=== PATIENT | male | born 1960 | race Caucasian/White ===

== ENCOUNTER 2023-12-08 22:22 | Emergency (ER) | payer OTHER, MEDICARE ==
[~2023-12-08] VITALS: Ht 180.3 cm; Wt 75.3 kg
[2023-12-08] MEDS ORDERED: Diphth,Pertuss(Acell),Tet Vac 0.5 ML VIAL IM ONE (22:35)
[2023-12-08 22:38] LABS: Base Excess Venous 0.4 mmol/L; Bicarbonate Venous 24.8 mmol/L (24.0-30.0); pH Blood Venous 7.41 (7.34-7.37)
[2023-12-08 22:39] LABS: BASOPHILS ABSOLUTE AUTO 0.03 K/mm3 (0.00-0.23); BASOPHILS PERCENT AUTO 1 % (0-2); EOSINOPHILS ABSOLUTE AUTO 0.08 K/mm3 (0.00-0.68); EOSINOPHILS PERCENT AUTO 1 % (0-6); Hematocrit 35.5 % (37.0-53.0); Hemoglobin 12.5 g/dL (13.5-17.5); IMMATURE GRAN ABSOLUTE AUTO 0.01 K/mm3 (0.00-0.10); IMMATURE GRAN PERCENT AUTO 0 % (0-1); LYMPHOCYTES PERCENT AUTO 31 % (21-46); MONOCYTES ABSOLUTE AUTO 0.51 K/mm3 (0.16-1.47); MONOCYTES PERCENT AUTO 9 % (4-13); Mean Corpuscular HGB 34.6 pg (26.0-34.0); Mean Corpuscular HGB Conc 35.2 g/dL (31.5-36.5); Mean Corpuscular Volume 98 fL (80-100); Mean Platelet Volume 9.2 fL (9.1-12.4); NEUTROPHILS ABSOLUTE AUTO 3.41 K/mm3 (1.96-9.15); NEUTROPHILS PERCENT AUTO 58 % (41-73); Platelet Count 184 K/mm3 (150-400); RDW Coefficient Variation 13.2 % (11.7-14.2); RDW Standard Deviation 47.2 fL (35.1-46.3); Red Blood Cell Count 3.61 M/mm3 (4.30-5.90); White Blood Cell Count 5.84 K/mm3 (4.00-11.30)
[2023-12-08] MEDS ORDERED: FentaNYL Citrate 50 MCG/ML 2 ML Injection IV PRN (22:40)
[2023-12-08 23:00] LABS: Prothrombin Time Results 10.7 Sec (9.7-11.5)
[2023-12-08 23:03] LABS: Salicylate 2.1 mg/dL (2.8-20.0)
[2023-12-08 23:11] LABS: Acetaminophen, Random <2.0 ug/mL (10.0-30.0); Alanine Aminotransfer (ALT/SGP 29 U/L (12-78); Albumin, Blood 3.7 g/dL (3.4-5.0); Alk Phos 89 U/L (50-136); Anion Gap 13 mmol/L (3-11); Aspartate Aminotrans (AST/SGOT 49 U/L (12-37); Bilirubin, Total 0.3 mg/dL (0.1-1.0); Blood Urea Nitrogen 17 mg/dL (8-24); Bun/Creatinine Ratio 15.5 (12.0-20.0); CO2, Blood 26 mmol/L (21-32); Calcium, Blood 8.1 mg/dL (8.5-10.1); Chloride, Blood 110 mmol/L (98-108); Ethanol (Alcohol), Blood, Med 343 mg/dL; Globulin, Blood 3.8 g/dL (2.2-4.0); Glomerular Filtration Rate 76 (60-); Glucose, Blood 105 mg/dL (70-99); Potassium, Blood 3.7 mmol/L (3.5-5.5); Sodium, Blood 145 mmol/L (136-145); Total Protein, Blood 7.5 g/dL (6.4-8.2)
[2023-12-08] MEDS ORDERED: NAPR500 PO (23:21)
[2023-12-08] MEDS ORDERED: MEMA5TAB PO (23:21)
[2023-12-08 23:50] LABS: Source, Urine Clean Catch
[2023-12-08 23:56] LABS: Bilirubin, Urine Neg (Neg); Blood, Urine 1+ (Neg); Glucose Qualitative, Urine Neg (Neg); Ketones, Urine Neg (Neg); Leukocyte Esterase, Urine Neg (Neg); Nitrite, Urine Neg (Neg); Protein, Urine Neg (Neg); Urobilinogen, Urine NORM (Normal)
[2023-12-08 23:59] LABS: Appearance, Urine Clear (Clear); Color, Urine Pale Yellow (P-Yellow)
[2023-12-09 00:04] LABS: Bacteria Not Seen /hpf; Red Blood Cells, Urine 0-2 /hpf (0-2); Squamous Epithelial Cells Not Seen /hpf (Few); White Blood Cells, Urine Not Seen /hpf (0-5)
[2023-12-09 00:07] LABS: U Amphetamine Screen Not Detected; U Barbituate Screen Not Detected; U Benzodiazapine Screen Not Detected; U Buprenorphine Screen Not Detected; U Cannabinoids Screen DETECTED; U Cocaine Screen Not Detected; U Methadone Screen Not Detected; U Methamphetamine Screen Not Detected; U Opiates Screen Not Detected; U Oxycodone Screen Not Detected; U Phencyclidine Screen Not Detected
[2023-12-09] MEDS ORDERED: CEPH500 PO (00:47)
[2023-12-09] MEDS ORDERED: Cephalexin Monohydrate 500 MG Cap PO ONE (00:50)
[2023-12-09] MEDS ORDERED: Diphth,Pertuss(Acell),Tet Vac 0.5 ML VIAL IM ONE (00:55)
[2023-12-09] MEDS ORDERED: RX Prepack 6 Tabs Oxycodone 5mg UD ONE (02:15)
== END 2023-12-09 02:27 | disposition home or self-care (01) ==
LOC: ER 22:22
PROVIDERS: Emergency Medicine
DX: S06.0X1A Concussion with loss of consciousness of 30 minutes or less, initial encounter (principal); S42.001A Fracture of unspecified part of right clavicle, initial encounter for closed fracture; M97.32XA Periprosthetic fracture around internal prosthetic left shoulder joint, initial encounter; S01.511A Laceration without foreign body of lip, initial encounter; V29.99XA Rider (driver) (passenger) of other motorcycle injured in unspecified traffic accident, initial encounter
CPT/HCPCS: 12011; 29125; 70450; 70486; 71260; 72125; 73130; 74177; 80053; 80320; 81001; 82803; 83605; 84443; 85025; 85610; 85730; 90471; 90715; 93005; 93010; 99285-25; A9270; G0480; Q9967

== ENCOUNTER 2023-12-28 14:24 | Emergency (ER) | payer OTHER, MEDICARE ==
[~2023-12-28] VITALS: Ht 180.3 cm; Wt 83.9 kg
[~2023-12-28 14:24] MED LIST: CEPH500 PO; MEMA5TAB PO; NAPR500 PO
[2023-12-28] MEDS ORDERED: Ketorolac Tromethamine 30mg Vial IM ONE (14:55)
== END 2023-12-28 17:08 | disposition home or self-care (01) ==
LOC: ER 14:24
DX: S02.2XXA Fracture of nasal bones, initial encounter for closed fracture (principal); S00.31XA Abrasion of nose, initial encounter; V29.99XA Rider (driver) (passenger) of other motorcycle injured in unspecified traffic accident, initial encounter
CPT/HCPCS: 70450; 70486; 72125; 96372; 99284-25; J1885

== ENCOUNTER 2024-04-26 19:13 | Emergency (ER) | payer OTHER, MEDICARE ==
[~2024-04-26] VITALS: Ht 180.3 cm; Wt 102.1 kg
[2024-04-26 22:09] LABS: BASOPHILS ABSOLUTE AUTO 0.04 K/mm3 (0.00-0.23); BASOPHILS PERCENT AUTO 1 % (0-2); EOSINOPHILS ABSOLUTE AUTO 0.13 K/mm3 (0.00-0.68); EOSINOPHILS PERCENT AUTO 4 % (0-6); Hematocrit 36.4 % (37.0-53.0); Hemoglobin 12.9 g/dL (13.5-17.5); IMMATURE GRAN PERCENT AUTO 0 % (0-1); LYMPHOCYTES PERCENT AUTO 32 % (21-46); MONOCYTES ABSOLUTE AUTO 0.37 K/mm3 (0.16-1.47); MONOCYTES PERCENT AUTO 10 % (4-13); Mean Corpuscular HGB 33.9 pg (26.0-34.0); Mean Corpuscular HGB Conc 35.4 g/dL (31.5-36.5); Mean Corpuscular Volume 96 fL (80-100); Mean Platelet Volume 8.7 fL (9.1-12.4); NEUTROPHILS PERCENT AUTO 53 % (41-73); Platelet Count 209 K/mm3 (150-400); RDW Standard Deviation 49.4 fL (35.1-46.3); White Blood Cell Count 3.74 K/mm3 (4.00-11.30)
[2024-04-26] MEDS ORDERED: Lidocaine 4% 1 Patch TOP ONE (22:10)
[2024-04-26 22:30] LABS: International Normalized Ratio 0.93
[2024-04-26 23:13] LABS: Albumin, Blood 4.4 g/dL (3.4-5.0); Albumin/Globulin Ratio 1.1 (0.8-1.8); Bilirubin, Total 0.7 mg/dL (0.1-1.0); Calcium, Blood 8.4 mg/dL (8.5-10.1); Creatinine, Blood 1.38 mg/dL (0.60-1.20); Potassium, Blood 3.9 mmol/L (3.5-5.5); Total Protein, Blood 8.4 g/dL (6.4-8.2)
== END 2024-04-26 19:32 | disposition home or self-care (01) ==
LOC: ER 19:13
PROVIDERS: Emergency Medicine
DX: S06.5X0A Traumatic subdural hemorrhage without loss of consciousness, initial encounter (principal); S62.337A Displaced fracture of neck of fifth metacarpal bone, left hand, initial encounter for closed fracture; S62.341A Nondisplaced fracture of base of second metacarpal bone, left hand, initial encounter for closed fracture; S62.343A Nondisplaced fracture of base of third metacarpal bone, left hand, initial encounter for closed fracture; S62.345A Nondisplaced fracture of base of fourth metacarpal bone, left hand, initial encounter for closed fracture; F10.20 Alcohol dependence, uncomplicated; Z88.8 Allergy status to other drugs, medicaments and biological substances; Z91.040 Latex allergy status; Z88.5 Allergy status to narcotic agent; Z79.2 Long term (current) use of antibiotics; Z79.1 Long term (current) use of non-steroidal anti-inflammatories (NSAID); V22.49XA Other motorcycle driver injured in collision with two- or three-wheeled motor vehicle in traffic accident, initial encounter; Y93.55 Activity, bike riding
CPT/HCPCS: 29105; 70450; 70486; 71046; 73130; 80053; 85025; 85610; 85730; 99285-25

== ENCOUNTER 2024-12-16 11:14 | Emergency (ER) | payer OTHER ==
[~2024-12-16] VITALS: Ht 180.3 cm; Wt 89.9 kg
[2024-12-16 11:40] LABS: BASOPHILS ABSOLUTE AUTO 0.03 K/mm3 (0.00-0.23); BASOPHILS PERCENT AUTO 0 % (0-2); EOSINOPHILS ABSOLUTE AUTO 0.10 K/mm3 (0.00-0.68); EOSINOPHILS PERCENT AUTO 1 % (0-6); Hematocrit 36.7 % (37.0-53.0); Hemoglobin 12.3 g/dL (13.5-17.5); IMMATURE GRAN ABSOLUTE AUTO 0.04 K/mm3 (0.00-0.10); IMMATURE GRAN PERCENT AUTO 0 % (0-1); LYMPHOCYTES ABSOLUTE AUTO 0.93 K/mm3 (0.84-5.20); LYMPHOCYTES PERCENT AUTO 10 % (21-46); MONOCYTES ABSOLUTE AUTO 0.59 K/mm3 (0.16-1.47); MONOCYTES PERCENT AUTO 6 % (4-13); Mean Corpuscular HGB Conc 33.5 g/dL (31.5-36.5); Mean Corpuscular Volume 104 fL (80-100); NEUTROPHILS ABSOLUTE AUTO 7.63 K/mm3 (1.96-9.15); NEUTROPHILS PERCENT AUTO 82 % (41-73); NRBC ABSOLUTE 0.00 K/mm3 (0.00-0.02); NRBC Auto 0.0 /100 WBC (0.0-0.2); Platelet Count 195 K/mm3 (150-400); RDW Coefficient Variation 12.9 % (11.7-14.2); RDW Standard Deviation 49.6 fL (35.1-46.3)
[2024-12-16 12:00] LABS: Alanine Aminotransfer (ALT/SGP 22.0 U/L (12-78); Albumin, Blood 2.2 g/dL (3.4-5.0); Albumin/Globulin Ratio 0.4 (0.8-1.8); Anion Gap 10.0 mmol/L (3-11); Aspartate Aminotrans (AST/SGOT 116.0 U/L (12-37); Bilirubin, Total 1.9 mg/dL (0.1-1.0); Blood Urea Nitrogen 8.0 mg/dL (8-24); CO2, Blood 25.0 mmol/L (21-32); Calcium, Blood 7.9 mg/dL (8.5-10.1); Chloride, Blood 103.0 mmol/L (98-108); Creatinine, Blood 1.07 mg/dL (0.60-1.20); Globulin, Blood 5.2 g/dL (2.2-4.0); Glucose, Blood 188.0 mg/dL (70-99); Potassium, Blood 3.2 mmol/L (3.5-5.5); Sodium, Blood 135.0 mmol/L (136-145); Total Protein, Blood 7.4 g/dL (6.4-8.2)
[2024-12-16 12:38] LABS: Prothrombin Time Results 14.7 Sec (9.7-11.5)
[2024-12-16] MEDS ORDERED: NS 500 ML IV SCH (13:00)
[2024-12-16] MEDS ORDERED: FURO20 PO (13:08)
[2024-12-16] MEDS ORDERED: ONDA4 PO (13:08)
== END 2024-12-16 13:27 | disposition home or self-care (01) ==
LOC: ER 11:14
PROVIDERS: Emergency Medicine
DX: K70.31 Alcoholic cirrhosis of liver with ascites (principal); K76.6 Portal hypertension; J90 Pleural effusion, not elsewhere classified
CPT/HCPCS: 74177; 80053; 80320; 83690; 85025; 85610; 85730; 99284-25; J7030; Q9967

== ENCOUNTER 2025-01-28 10:52 | Inpatient (IN) | payer OTHER ==
[~2025-01-28] VITALS: Ht 180.3 cm; Wt 88.7 kg
[~2025-01-28 10:52] MED LIST changes: +FURO20 PO; +ONDA4 PO
[2025-01-28 12:17] LABS: BASOPHILS ABSOLUTE AUTO 0.06 K/mm3 (0.00-0.23); BASOPHILS PERCENT AUTO 1 % (0-2); EOSINOPHILS ABSOLUTE AUTO 0.17 K/mm3 (0.00-0.68); EOSINOPHILS PERCENT AUTO 2 % (0-6); Hematocrit 33.0 % (37.0-53.0); Hemoglobin 11.1 g/dL (13.5-17.5); IMMATURE GRAN ABSOLUTE AUTO 0.02 K/mm3 (0.00-0.10); IMMATURE GRAN PERCENT AUTO 0 % (0-1); LYMPHOCYTES ABSOLUTE AUTO 0.86 K/mm3 (0.84-5.20); LYMPHOCYTES PERCENT AUTO 11 % (21-46); MONOCYTES ABSOLUTE AUTO 0.58 K/mm3 (0.16-1.47); MONOCYTES PERCENT AUTO 7 % (4-13); Mean Corpuscular HGB Conc 33.6 g/dL (31.5-36.5); Mean Corpuscular Volume 108 fL (80-100); NEUTROPHILS ABSOLUTE AUTO 6.49 K/mm3 (1.96-9.15); NEUTROPHILS PERCENT AUTO 79 % (41-73); NRBC ABSOLUTE 0.00 K/mm3 (0.00-0.02); NRBC Auto 0.0 /100 WBC (0.0-0.2); Platelet Count 183 K/mm3 (150-400); RDW Coefficient Variation 15.4 % (11.7-14.2); RDW Standard Deviation 61.2 fL (35.1-46.3)
[2025-01-28 12:30] LABS: Prothrombin Time Results 14.5 Sec (9.7-11.5)
[2025-01-28 12:35] LABS: Alanine Aminotransfer (ALT/SGP 26.0 U/L (12-78); Albumin, Blood 2.3 g/dL (3.4-5.0); Albumin/Globulin Ratio 0.4 (0.8-1.8); Anion Gap 7.0 mmol/L (3-11); Aspartate Aminotrans (AST/SGOT 65.0 U/L (12-37); Bilirubin, Total 1.8 mg/dL (0.1-1.0); Blood Urea Nitrogen 10.0 mg/dL (8-24); CO2, Blood 21.0 mmol/L (21-32); Calcium, Blood 8.4 mg/dL (8.5-10.1); Chloride, Blood 110.0 mmol/L (98-108); Creatinine, Blood 1.24 mg/dL (0.60-1.20); Globulin, Blood 5.7 g/dL (2.2-4.0); Glucose, Blood 136.0 mg/dL (70-99); Potassium, Blood 3.2 mmol/L (3.5-5.5); Sodium, Blood 135.0 mmol/L (136-145); Total Protein, Blood 8.0 g/dL (6.4-8.2)
[2025-01-28] MEDS ORDERED: Piperacillin/Tazobactam Sod 4.5 GM in NS 100 ML IV ONE (12:55)
[2025-01-28] MEDS ORDERED: FentaNYL Citrate 50 MCG/ML 2 ML Injection IV ONE (12:55)
[2025-01-28] MEDS ORDERED: NS 1,000 ML IV SCH (12:55)
[2025-01-28] MEDS ORDERED: ENULOSE10 GM/156 PO (13:26)
[2025-01-28] MEDS ORDERED: B-1100 M1 PO (13:27)
[2025-01-28] MEDS ORDERED: RIFA550T2 PO (13:27)
[2025-01-28] MEDS ORDERED: SPIR50 PO (13:30)
[2025-01-28] MEDS ORDERED: FURO40 PO (13:30)
[2025-01-28] MEDS ORDERED: ONDA4ODT MM (13:31)
[2025-01-28] MEDS ORDERED: OMEP20ER PO (13:31)
[2025-01-28] MEDS ORDERED: FLU VACC TS2025-26(6MOS UP)/PF 45 MCG/0.5 ML SYRINGE IM SCH (17:20)
[2025-01-28] MEDS ORDERED: LACT10SY PO (18:25)
[2025-01-28] MEDS ORDERED: Piperacillin/Tazobactam Sod 3.375 GM in NS 100 ML IV SCH (18:30)
[2025-01-28 18:33] VITALS: BP 116/75
--- NOTE | 2025-01-28 19:22 | NUR ---
SHIFT SUMMARY PT ARRIVED TO ROOM 227 FROM ER AT APPROXIMATELY 1810, PT ALERT/ORIENTED. PT IS AMBULATORY. VSS. PT ORIENTED TO ROOM, CALL LIGHT WITHIN REACH. FAMILY PRESENT AT BEDSIDE.
[2025-01-28] MEDS ORDERED: NS 250 ML IV PRN (19:25)
--- NOTE | 2025-01-28 20:04 | NUR ---
PHYSICIAN COMMUNICATION DAY RN SARITA Alejandro INFORMED THIS NURSE PT K-3.2 & WAS ORDERED 80MEQ PO K. VERIFIED W/ADRIANNA Robertson IF WE WANTED TO GIVE FULL DOSE OF 80MEQ FOR A 3.2-K LEVEL & HE AGREED SINCE PT RECIEVING LASIX & SPIRONALACTONE.
[2025-01-28 22:00] VITALS: BP 153/76
[2025-01-28 22:56] LABS: pH Blood Venous 7.44 (7.34-7.37)
[2025-01-28 23:38] VITALS: BP 127/71
--- NOTE | 2025-01-28 23:56 | NUR ---
UPDATE/PHYSICIAN COMMUNICATION APPROX 2129 RENEWALS MANAGER MAITEKATHERINEAmanda Duggan WENT IN PT RM, HE WAS VISABLLY SHIVERING STATING HE WAS "COLD" & TEMP WAS 100.1, SHE REMOVED BLANKETS OFF PT. WHEN I WENT TO TAKE PO TEMP & VS, PT SHIVERING & STATING VERY COLD. PO TEMP 98.0, RR 24, HR 124, BP 153/76. INFORMED ADRIANNA Robertson & HE ORDERED LA, VBG, BLOOD CX & TYLENOL Q8. APPROX 2330 I WAS INFORMED PT HAD A CRITICAL LA OF 2.1. CALLED & INFORMED ADRIANNA Robertson OF LA & VBG RESULTS. ADRIANNA Robertson STATED PT IN RESPIRATORY ALKALOSIS & NO NEW ORDERS GIVEN AT THIS TIME. ADRIANNA Robertson STATED TO CONTINUE TO MONITOR TEMP & HR.
[2025-01-29 03:38] VITALS: BP 118/78
--- NOTE | 2025-01-29 06:07 | NUR ---
SHIFT SUMMARY AOX3-SELF, PLACE, SITUATION. FORGETFUL. ABLE TO MAKE NEEDS KNOWN & ANSWER/FOLLOW SIMPLE DIRECTIONS. PT HAD LOW GRADE TEMP T/O NIGHT, MEDICATED 1x W/500MG TYLENOL, SINCE RECIEVING TYLENOL PT HASNT BEEN NOTED TO HAVE AGRESSIVE CHILLS/SHAKING. HR TACHY @TIMES 103-124, WORSE WHEN TEMP ELEVATED. REST OF VSS. READ PREVIOUS NOTES REGARDING LA LAB. PT HAS VOIDED MULTx THIS SHIFT. HAD 2 LIQUID BM. ABD MOD-SEVERE DISTENDED, FIRM, DENIES N/V. TOLERATING CLEAR DIET. HYPERACTIVE BT. CALL LIGHT IN REACH.
[2025-01-29 06:20] LABS: BASOPHILS ABSOLUTE AUTO 0.06 K/mm3 (0.00-0.23); BASOPHILS PERCENT AUTO 1 % (0-2); EOSINOPHILS ABSOLUTE AUTO 0.19 K/mm3 (0.00-0.68); EOSINOPHILS PERCENT AUTO 3 % (0-6); Hematocrit 26.4 % (37.0-53.0); Hemoglobin 8.8 g/dL (13.5-17.5); IMMATURE GRAN ABSOLUTE AUTO 0.02 K/mm3 (0.00-0.10); IMMATURE GRAN PERCENT AUTO 0 % (0-1); LYMPHOCYTES ABSOLUTE AUTO 0.86 K/mm3 (0.84-5.20); LYMPHOCYTES PERCENT AUTO 14 % (21-46); MONOCYTES ABSOLUTE AUTO 0.34 K/mm3 (0.16-1.47); MONOCYTES PERCENT AUTO 6 % (4-13); Mean Corpuscular HGB Conc 33.3 g/dL (31.5-36.5); Mean Corpuscular Volume 107 fL (80-100); NEUTROPHILS ABSOLUTE AUTO 4.70 K/mm3 (1.96-9.15); NEUTROPHILS PERCENT AUTO 76 % (41-73); NRBC ABSOLUTE 0.00 K/mm3 (0.00-0.02); NRBC Auto 0.0 /100 WBC (0.0-0.2); Platelet Count 142 K/mm3 (150-400); RDW Coefficient Variation 15.4 % (11.7-14.2); RDW Standard Deviation 60.4 fL (35.1-46.3)
[2025-01-29 07:02] LABS: Alanine Aminotransfer (ALT/SGP 18.0 U/L (12-78); Albumin, Blood 1.8 g/dL (3.4-5.0); Albumin/Globulin Ratio 0.4 (0.8-1.8); Anion Gap 8.0 mmol/L (3-11); Aspartate Aminotrans (AST/SGOT 49.0 U/L (12-37); Bilirubin, Total 2.3 mg/dL (0.1-1.0); Blood Urea Nitrogen 7.0 mg/dL (8-24); CO2, Blood 19.0 mmol/L (21-32); Calcium, Blood 7.7 mg/dL (8.5-10.1); Chloride, Blood 115.0 mmol/L (98-108); Creatinine, Blood 1.24 mg/dL (0.60-1.20); Globulin, Blood 4.7 g/dL (2.2-4.0); Glucose, Blood 89.0 mg/dL (70-99); Magnesium, Blood 1.7 mg/dL (1.6-2.4); Potassium, Blood 4.1 mmol/L (3.5-5.5); Sodium, Blood 138.0 mmol/L (136-145); Total Protein, Blood 6.5 g/dL (6.4-8.2)
[2025-01-29 07:16] VITALS: BP 114/75
--- NOTE | 2025-01-29 08:42 | NUR ---
DR GILBERT IN TO SEE PT.
[2025-01-29] MEDS ORDERED: Enoxaparin 40 MG/0.4 ML SYR SC SCH (09:00)
[2025-01-29 14:33] VITALS: BP 112/71
--- NOTE | 2025-01-29 17:05 | NUR ---
SUMMARY NO ACUTE CHANGES T/O SHIFT. PT INDEPENDENT IN ROOM. REPORTING MULTIPLE LOOSE BMS. HELD LACTULOSE PER DR DOZIER'S ORDERS. PT ADVANCED TO FULL LIQUID DIET THIS SHIFT, TOLERATING W/O DIFFICULTY. CALL LIGHT WITHIN REACH.
[2025-01-29 20:02] VITALS: BP 127/74
[2025-01-30 04:19] VITALS: BP 121/77
[2025-01-30 04:39] LABS: BASOPHILS ABSOLUTE AUTO 0.06 K/mm3 (0.00-0.23); BASOPHILS PERCENT AUTO 1 % (0-2); EOSINOPHILS ABSOLUTE AUTO 0.23 K/mm3 (0.00-0.68); EOSINOPHILS PERCENT AUTO 3 % (0-6); Hematocrit 27.4 % (37.0-53.0); Hemoglobin 9.1 g/dL (13.5-17.5); IMMATURE GRAN ABSOLUTE AUTO 0.02 K/mm3 (0.00-0.10); IMMATURE GRAN PERCENT AUTO 0 % (0-1); LYMPHOCYTES ABSOLUTE AUTO 1.25 K/mm3 (0.84-5.20); LYMPHOCYTES PERCENT AUTO 17 % (21-46); MONOCYTES ABSOLUTE AUTO 0.65 K/mm3 (0.16-1.47); MONOCYTES PERCENT AUTO 9 % (4-13); Mean Corpuscular HGB Conc 33.2 g/dL (31.5-36.5); Mean Corpuscular Volume 108 fL (80-100); NEUTROPHILS ABSOLUTE AUTO 5.02 K/mm3 (1.96-9.15); NEUTROPHILS PERCENT AUTO 69 % (41-73); NRBC ABSOLUTE 0.00 K/mm3 (0.00-0.02); NRBC Auto 0.0 /100 WBC (0.0-0.2); Platelet Count 151 K/mm3 (150-400); RDW Coefficient Variation 15.0 % (11.7-14.2); RDW Standard Deviation 59.4 fL (35.1-46.3)
[2025-01-30 05:02] LABS: Alanine Aminotransfer (ALT/SGP 17.0 U/L (12-78); Albumin, Blood 1.6 g/dL (3.4-5.0); Albumin/Globulin Ratio 0.3 (0.8-1.8); Anion Gap 10.0 mmol/L (3-11); Aspartate Aminotrans (AST/SGOT 44.0 U/L (12-37); Bilirubin, Total 1.8 mg/dL (0.1-1.0); Blood Urea Nitrogen 7.0 mg/dL (8-24); CO2, Blood 20.0 mmol/L (21-32); Calcium, Blood 7.6 mg/dL (8.5-10.1); Chloride, Blood 111.0 mmol/L (98-108); Creatinine, Blood 1.05 mg/dL (0.60-1.20); Globulin, Blood 4.7 g/dL (2.2-4.0); Glucose, Blood 86.0 mg/dL (70-99); Potassium, Blood 3.8 mmol/L (3.5-5.5); Sodium, Blood 137.0 mmol/L (136-145); Total Protein, Blood 6.3 g/dL (6.4-8.2)
--- NOTE | 2025-01-30 05:27 | NUR ---
SHIFT SUMMARY AOX4. VSS. AFEBRILE T/O NIGHT. ABD SEVERE DISTENDED, FIRM, DENIES N/V, DYSPNEA OR ANY ABD PAIN. SHWETA DIET. HYPERACTIVE BT. HELD HS LACTALOSE FOR PT REPORTS HAVING APPROX 15 BOWEL MOVEMENTS T/O ENTIRE DAY 01/29. TOLERATING FULL LIQUIDS. VOIDING. UP IND AMBULATING IN RM. CALL LIGHT IN REACH & PT ABLE TO MAKE NEEDS KNOWN.
[2025-01-30 05:47] LABS: Lactate Dehydrogenase (Ld),Bld 238.0 U/L (100-240)
--- NOTE | 2025-01-30 06:09 | NUR ---
PHYSICIAN COMMUNICATION DR DOZIER ROUNDED APPROX 0600 ON PT, ASKED FOR DIET TO BE ADVANCED TO FIBER RESTRICTED & INFORMED THIS NURSE OF PARACENTESIS ORDERS HE PLACED. ALSO STATED LONG PT DOES WELL, PT MAY BE A CANDIDATE FOR DC HOME TODAY. INFORMED EFFERVESCENT SALTS COMPOUNDERJOCELYNN Zapata
[2025-01-30 07:21] VITALS: BP 117/67
[2025-01-30] MEDS ORDERED: Folic Acid 1 MG TAB PO SCH (09:00)
--- NOTE | 2025-01-30 14:10 | NUR ---
PT TO PARACENTESIS.
[2025-01-30 15:01] VITALS: BP 103/67
--- NOTE | 2025-01-30 15:05 | NUR ---
PT BACK FROM [facility]AC[facility].
[2025-01-30 15:39] LABS: Automated BF WBC Count 0.078 K/mm3 (0-999)
[2025-01-30 16:11] LABS: Glucose, Body Fluid 121 mg/dL; Lactate Dehydrogenase, Body Fl 46 U/L
[2025-01-30 16:13] LABS: RBC Count, Body Fluid 69 /mm3 (0-0)
[2025-01-30 16:15] LABS: Triglycerides, Body Fluid 26 mg/dL
[2025-01-30 16:17] LABS: Albumin, Body Fluid 0.3 g/dL
[2025-01-30 16:48] LABS: Lymphocytes, Fluid 24.0 % (0.0-18.0); Monocytes/Mononuclear, Fluid 66.0 % (0.0-50.0); Neutrophils, Fluid 9.0 % (0.0-25.0); Total Cell Count, Body Fluid 100
[2025-01-30 16:49] LABS: Color, Body Fluid L Yellow (None-Yellow)
[2025-01-30] MEDS ORDERED: FOLI1 PO (17:04)
[2025-01-30] MEDS ORDERED: AMOCLA875 PO (17:05)
[2025-01-30 17:12] VITALS: BP 111/72
--- NOTE | 2025-01-30 17:21 | NUR ---
DISCHARGING REVIEWED DC INSTRUCTIONS W/PT; VERBALIZED UNDERSTANDING. PRESCRIPTIONS SENT TO [facility] PER PT REQUEST. VSS. PT CALLING RIDE.
--- NOTE | 2025-01-30 17:37 | NUR ---
discharged pt left unit in wc w/possessions and dc paperwork in hand, accompanied by family member.
== END 2025-01-30 17:42 | disposition home health service (06) | DRG 392 ==
LOC: ER 10:52 → SURS 16:07
PROVIDERS: Nurse Practitioner Acute Care; Physician Assistant; Surgery; ADMIT Internal Medicine
PROC: 3E03329 Introduction of Other Anti-infective into Peripheral Vein, Percutaneous Approach (ICD-10-PCS; 2025-01-28)
PROC: 3E0234Z Introduction of Serum, Toxoid and Vaccine into Muscle, Percutaneous Approach (ICD-10-PCS; 2025-01-28)
PROC: 0W9G3ZZ Drainage of Peritoneal Cavity, Percutaneous Approach (ICD-10-PCS; principal; 2025-01-30)
DX: K57.20 Diverticulitis of large intestine with perforation and abscess without bleeding (principal); E87.1 Hypo-osmolality and hyponatremia; K76.6 Portal hypertension; J90 Pleural effusion, not elsewhere classified; F10.11 Alcohol abuse, in remission; E87.6 Hypokalemia; K70.31 Alcoholic cirrhosis of liver with ascites; E88.09 Other disorders of plasma-protein metabolism, not elsewhere classified; D64.9 Anemia, unspecified; K82.8 Other specified diseases of gallbladder; M43.8X6 Other specified deforming dorsopathies, lumbar region; K76.82 Hepatic encephalopathy; Z88.8 Allergy status to other drugs, medicaments and biological substances; Z88.5 Allergy status to narcotic agent; Z86.19 Personal history of other infectious and parasitic diseases; Z91.040 Latex allergy status; Z98.890 Other specified postprocedural states; Z79.899 Other long term (current) drug therapy; Z23 Encounter for immunization
CPT/HCPCS: 36415; 49083; 74177; 80053; 82042; 82607; 82746; 82803; 82945; 83605; 83615; 83735; 83986; 84157; 84478; 85025; 85610; 85730; 89051; 90715; 93005; 93010; 96365-59; 96366; 96375; 99285-25; A9270; J1650; J2543; J3010; J7030; J7050; Q9967

== ENCOUNTER 2025-02-03 03:12 | Inpatient (IN) | payer MEDICARE, MEDICAID ==
[~2025-02-03] VITALS: Ht 180.3 cm; Wt 78.1 kg
[2025-02-03] VITALS (13 sets, daily range): BP systolic 96–129; BP diastolic 64–91
[~2025-02-03 03:12] MED LIST changes: +AMOCLA875 PO; +B-1100 M1 PO; +ENULOSE10 GM/156 PO; +ESOM20 PO; +FOLI1 PO; +FURO40 PO; +LACT10SY PO; +ONDA4ODT MM; +RIFA550T2 PO; +SPIR50 PO
[2025-02-03 03:42] LABS: BASOPHILS ABSOLUTE AUTO 0.02 K/mm3 (0.00-0.23); BASOPHILS PERCENT AUTO 1 % (0-2); EOSINOPHILS ABSOLUTE AUTO 0.11 K/mm3 (0.00-0.68); EOSINOPHILS PERCENT AUTO 3 % (0-6); Hematocrit 34.0 % (37.0-53.0); Hemoglobin 11.5 g/dL (13.5-17.5); IMMATURE GRAN ABSOLUTE AUTO 0.01 K/mm3 (0.00-0.10); IMMATURE GRAN PERCENT AUTO 0 % (0-1); LYMPHOCYTES ABSOLUTE AUTO 1.86 K/mm3 (0.84-5.20); LYMPHOCYTES PERCENT AUTO 51 % (21-46); MONOCYTES ABSOLUTE AUTO 0.11 K/mm3 (0.16-1.47); MONOCYTES PERCENT AUTO 3 % (4-13); Mean Corpuscular HGB Conc 33.8 g/dL (31.5-36.5); Mean Corpuscular Volume 107 fL (80-100); NEUTROPHILS ABSOLUTE AUTO 1.53 K/mm3 (1.96-9.15); NEUTROPHILS PERCENT AUTO 42 % (41-73); NRBC ABSOLUTE 0.00 K/mm3 (0.00-0.02); NRBC Auto 0.0 /100 WBC (0.0-0.2); Platelet Count 248 K/mm3 (150-400); RDW Coefficient Variation 14.5 % (11.7-14.2); RDW Standard Deviation 57.7 fL (35.1-46.3)
[2025-02-03] MEDS ORDERED: HYDROmorphone HCl/Pf 1MG SYR IV ONE ×2 (03:45→05:00)
[2025-02-03] MEDS ORDERED: Ondansetron HCl 2 MG / ML 2ML Vial IV ONE (03:45)
[2025-02-03] MEDS ORDERED: Diazepam 5 MG / ML 2ML SYR IV ONE (03:55)
[2025-02-03 04:14] LABS: Alanine Aminotransfer (ALT/SGP 23.0 U/L (12-78); Albumin, Blood 2.2 g/dL (3.4-5.0); Albumin/Globulin Ratio 0.4 (0.8-1.8); Anion Gap 11.0 mmol/L (3-11); Aspartate Aminotrans (AST/SGOT 72.0 U/L (12-37); Bilirubin, Total 1.8 mg/dL (0.1-1.0); Blood Urea Nitrogen 8.0 mg/dL (8-24); CO2, Blood 20.0 mmol/L (21-32); Calcium, Blood 8.4 mg/dL (8.5-10.1); Chloride, Blood 108.0 mmol/L (98-108); Creatinine, Blood 1.14 mg/dL (0.60-1.20); Globulin, Blood 6.2 g/dL (2.2-4.0); Glucose, Blood 99.0 mg/dL (70-99); Magnesium, Blood 1.8 mg/dL (1.6-2.4); Potassium, Blood 4.0 mmol/L (3.5-5.5); Sodium, Blood 135.0 mmol/L (136-145); Total Protein, Blood 8.4 g/dL (6.4-8.2)
[2025-02-03 05:55] LABS: Automated BF RBC Count 0.002 M/mm3 (0-0)
[2025-02-03] MEDS ORDERED: Piperacillin/Tazobactam Sod 4.5 GM in NS 100 ML IV ONE (05:55)
[2025-02-03 06:12] LABS: RBC Count, Body Fluid 2000 /mm3 (0-0)
[2025-02-03 06:18] LABS: Glucose, Body Fluid 39 mg/dL
[2025-02-03 06:35] LABS: Color, Body Fluid Yellow (None-Yellow); Lymphocytes, Fluid 2.0 % (0.0-18.0); Monocytes/Mononuclear, Fluid 1.0 % (0.0-50.0); Neutrophils, Fluid 97.0 % (0.0-25.0); Total Cell Count, Body Fluid 100
[2025-02-03] MEDS ORDERED: NS 1,000 ML IV SCH ×2 (10:10→10:35)
[2025-02-03] MEDS ORDERED: Metoclopramide HCl 5MG / ML 2ML Vial IV PRN (10:30)
[2025-02-03] MEDS ORDERED: Cefepime HCl 2,000 MG in NS 100 ML IV SCH (10:30)
[2025-02-03] MEDS ORDERED: MetroNIDAZOLE 500MG/NS 100 ml 100 ML IV SCH ×2 (10:35→11:00)
[2025-02-03] MEDS ORDERED: FLU VACC TS2025-26(6MOS UP)/PF 45 MCG/0.5 ML SYRINGE IM SCH (10:35)
[2025-02-03] MEDS ORDERED: Ondansetron HCl 2 MG / ML 2ML Vial IV PRN (10:35)
[2025-02-03] MEDS ORDERED: Diazepam 5 MG / ML 2ML SYR IV PRN (10:40)
[2025-02-03] MEDS ORDERED: HYDROmorphone HCl/Pf 1MG SYR IV PRN (10:45)
[2025-02-03] MEDS ORDERED: Pantoprazole Sodium 40 MG Injection IV SCH (11:00)
[2025-02-03] MEDS ORDERED: LORazepam 2 MG/ML 1ML Injection IV PRN (11:35)
--- NOTE | 2025-02-03 13:05 | NUR ---
ASSUMPTION OF CARE: PATIENT HAS BEEN A/O X4 BUT DROWSY AND A POOR HISTORIAN, ABD PAIN HAS BEEN CONTROLLED WITH MEDICAITONS SINCE ARRIVAL FROM ED. NS IS NOW INFUSING 100/HR. FLAGYL AND ABX STARTED. SURGEON RECOMMENDED TRANSFER TO HIGHER LEVEL OF CARE. HOSPITALIST AWARE, NO ORDERS AT THIS TIME. PATIETN DENIES CEHTS PAIN PRESSURE OR SOB AT REST. LAST BM YESTERDAY. HOME MED REC COMPLETE NO NEW ORDERS. ON RA. SPO2 >94%. HOSPITALIST HAS ROUNDED. ALL ACUTE CONCERNS ADRESSED, SPOT CHECK CBG AT 1300 AND BLADDER SCAN AFTER ATTEMPT TO VOID MILD RETENTION, EDUCATED ON POTENTIAL NEED FOR STRAIGHT CATH, DECLINED AT THIS TIME. PHARMACY ADDRESSED CIRRHOSIS AFFECTED MEDS, VSS AFEBRILE. PLAN OF CARE CONTINUES
[2025-02-03 13:56] LABS: Bilirubin, Urine Neg (Neg); Color, Urine Yellow (P-Yellow); Glucose Qualitative, Urine Neg (Neg); Ketones, Urine Neg (Neg); Leukocyte Esterase, Urine Neg (Neg); Protein, Urine 2+ (Neg); Source, Urine Clean Catch; Specific Gravity, Urine 1.010 (1.003-1.022); Urobilinogen, Urine NORM (Normal)
[2025-02-03 14:14] LABS: Red Blood Cells, Urine 0-2 /hpf (0-2); White Blood Cells, Urine 0-2 /hpf (0-5)
[2025-02-03 14:52] LABS: Prothrombin Time Results 15.2 Sec (9.7-11.5)
--- NOTE | 2025-02-03 15:06 | NUR ---
[facility] transfer: patient with accepting bed at [place] [phone] program aide group work working on transfer. patient and Family at bedside informed.
--- NOTE | 2025-02-03 15:53 | NUR ---
EMS ARRIVED FOR TRANSFER: PATIENT IS ALERT AND ORIENTED X4 ABLE TO MAKE NEEDS KNOWN, DAUGHTER AT BEDSIDE, REPORT GIVEN TO EMS FOR TRANSFER, PUMP AND ID NUMBERS IN ORDER. INFUSING NS AT 75. DENIES CHEST PAIN PRESSURE OR SOB AT REST. MEDICATED FOR PAIN AT APPROX [address]3 PER MAR. PATIENT STILL ST BUT HR 110'S VERSUS 120'S. DENIES DIZZINESS. REPORT GIVEN TO AT [facility] HANNAH RN AT [phone], ROOM 7210, NO ACUTE CONCERNS VSS AFEBRILE. ALL QUETSIOSN ANSWERED. DR. GILBERT UPDATED OF TRANSFER.
== END 2025-02-03 15:40 | disposition short-term general hospital (02) | DRG 391 ==
LOC: ER 03:12 → PCU 06:10 → ICUE 07:46
PROVIDERS: Student in an Organized Health Care Education/Training Program; ADMIT Internal Medicine
PROC: 3E03329 Introduction of Other Anti-infective into Peripheral Vein, Percutaneous Approach (ICD-10-PCS; principal; 2025-02-03)
PROC: 0W9G3ZZ Drainage of Peritoneal Cavity, Percutaneous Approach (ICD-10-PCS; 2025-02-03)
DX: K57.20 Diverticulitis of large intestine with perforation and abscess without bleeding (principal); K65.8 Other peritonitis; K76.6 Portal hypertension; E87.1 Hypo-osmolality and hyponatremia; K70.31 Alcoholic cirrhosis of liver with ascites; D72.819 Decreased white blood cell count, unspecified; D64.89 Other specified anemias; F17.220 Nicotine dependence, chewing tobacco, uncomplicated; E88.09 Other disorders of plasma-protein metabolism, not elsewhere classified; K82.8 Other specified diseases of gallbladder; F10.21 Alcohol dependence, in remission; Z60.2 Problems related to living alone; Z88.5 Allergy status to narcotic agent
CPT/HCPCS: 36415; 49082; 74177; 76705; 80053; 81001; 82945; 82947; 83690; 83735; 83880; 84157; 85025; 85610; 89051; 93005; 93010; 96374-59; 96375-59; 96376-59; 99285-25; A9270; J0692; J1171; J2405; J2470; J2543; J3360; J7030; Q9967